=== PATIENT | male | born 1995 | race African-American/Black ===

== ENCOUNTER 2017-05-23 08:45 | Emergency (ER) | payer SELFPAY ==
[2017-05-23 08:49] VITALS: BP 149/96; PULSE 74; TEMP 98; BMI 25.0
--- NOTE | 2017-05-23 09:15 | PDOC ---
History of Present Illness - General Chief Complaint: Pain Stated Complaint: FALL/ WRIST PAIN Time Seen by Provider: 05/23/17 08:55 History Source: Patient Exam Limitations: No Limitations - History of Present Illness Initial Comments: 05/23/17 09:10 CHIEF COMPLAINT: Left wrist pain. HISTORY OF PRESENT ILLNESS: Patient is a 22 y/o male no significant medical history currently on no medication states he [place] slipped and fell onto his left wrist now with immobility to left wrist. Occurred: reports: yesterday Severity: reports: moderate Upper Extremity Pain Location: left: wrist Method of Injury: reports: fell Modifying Factors: improves with: None Extremity Pain Location - Extremity Pain Location Extremity Pain Locations: left: other (wrist) Past History - Past Medical History Allergies/Adverse Reactions: Allergies Allergy/AdvReac Type Severity Reaction Status Date / Time crab Allergy Swelling Verified 05/23/17 08:49 Home Medications: Ambulatory Orders Ibuprofen [Motrin -] 600 mg PO TID #21 tablet 05/23/17 - Immunization History Immunization Up to Date: Yes - Psycho/Social/Smoking Cessation Hx Anxiety: No Suicidal Ideation: No Smoking History: Never smoked Information on smoking cessation initiated: No Hx Alcohol Use: No Drug/Substance Use Hx: No Substance Use Type: None Review of Systems - Review of Systems Musculoskeletal: Yes: Joint Pain, Joint Swelling Integumentary: No: Bruising, Erythema Neurological: No: Symptoms reported, Paresthesia, Tingling, Tremors All Other Systems: Reviewed and Negative *Physical Exam - Vital Signs Last Vital Signs Temp Pulse Resp BP Pulse Ox 98 F 74 18 149/96 97 05/23/17 08:47 05/23/17 08:47 05/23/17 08:47 05/23/17 08:47 05/23/17 08:47 - Physical Exam General Appearance: Yes: Appropriately Dressed. No: Apparent Distress Respiratory/Chest: positive: Lungs Clear, Normal Breath Sounds Cardiovascular: positive: Regular Rhythm Extremity: positive: Normal Capillary Refill, Swelling (left wrist), Inflammation. negative: Erythema Integumentary: positive: Swelling. negative: Erythema, Ecchymosis, Bruising Neurologic: positive: Alert, Normal Mood/Affect, Normal Response, Motor Strength 5/5 ED Treatment Course - RADIOLOGY Radiology Studies Ordered: Category Date Time Status FOREARM- LEFT [RAD] Stat Radiology 05/23/17 09:10 Ordered WRIST-LEFT [RAD] Stat Radiology 05/23/17 09:10 Ordered Medical Decision Making - Medical Decision Making 05/23/17 10:08 A/P: Patient here for evaluation of left wrist swelling, status post fall, sent for x-ray to rule out acute fracture wrist immobilizer placed on. Xray is negative for acute fracture , wrist splint placed on because of increased pain to area with mobility, to follow-up with orthopedics for evaluation. Motrin for pain *DC/Admit/Observation/Transfer Diagnosis at time of Disposition: Wrist sprain Qualifiers: Encounter type: initial encounter Laterality: left Qualified Code(s): S63.502A - Unspecified sprain of left wrist, initial encounter - Discharge Dispostion Disposition: HOME Condition at time of disposition: Good Admit: No - Prescriptions Prescriptions: Ibuprofen [Motrin -] 600 mg PO TID #21 tablet - Patient Instructions Printed Discharge Instructions: DI for Wrist Sprain Additional Instructions: 1. Please return to the emergency department with any redness, swelling, increased pain, or any other concerns. 2. Keep splint on until pain resolved 3. Please follow up in the office of Dr. Merritt within a week if pain persists. 4. No weightbearing 5. Ice and elevate when at rest. 6. Motrin for pain - Post Discharge Activity Work/School Note: Back to Work
[2017-05-23] MEDS ORDERED: IBUPROFEN 600 MG TABLET (FP) PO ONE ×2 (10:58→10:59)
== END 2017-05-23 11:12 | disposition home or self-care (01) ==
LOC: JERFT 08:45
PROC: 2W3DXYZ Immobilization of Left Lower Arm using Other Device (ICD-10-PCS; principal; 2017-05-23)
DX: S63.502A Unspecified sprain of left wrist, initial encounter (principal); W18.39XA Other fall on same level, initial encounter; Y93.02 Activity, running; Y92.828 Other wilderness area as the place of occurrence of the external cause; Y99.8 Other external cause status
CPT/HCPCS: 73090-TC-LT; 73110-TC-LT; 99281-25